=== PATIENT | female | born 1990 | race Caucasian/White ===

== ENCOUNTER → 2024-12-10 16:54 | Outpatient (CLI) | payer OTHER, SELFPAY ==
--- NOTE | 2024-12-10 16:57 | DI.MRI.S_ITS ---
PROCEDURE: MR WRIST RT WO/W CON INDICATIONS: GANGLION CYST RT WRIST TECHNIQUE: Noncontrast coronal proton density fast spin echo and T2 fast spin echo with fat saturation; coronal 3-D gradient echo, axial T1 spin echo and T2 fast spin echo with fat saturation, axial T1 spin echo with fat saturation, sagittal T1 spin echo through the wrist. Post-contrast axial, coronal, and sagittal T1 spin echo with fat saturation through the wrist. COMPARISON: None. FINDINGS: Image quality: Excellent. Bones and cartilage: No suspicious osseous enhancement. The carpal bones are normally aligned. No bone marrow contusions or fractures. No evidence for avascular necrosis. Overlying cartilage surfaces appear normal. Carpal ligaments: The scapholunate and lunotriquetral ligaments appear intact. On sagittal images, the pisohamate ligament appears intact. Triangular fibrocartilage complex: The triangular fibrocartilage appears intact. Tendons and soft tissues: Focal ovoid lesion is seen in the subcutaneous tissues at the volar radial aspect of the wrist measuring 7 x 4 x 6 mm (8/13 and 4/2). No definite cystic connection to the adjacent radiocarpal joint. The lesion is centrally hypointense on fluid sensitive sequences. There is peripheral postcontrast enhancement. A small ganglion cyst is seen at the volar radial aspect of the radiocarpal joint measuring 6 x 3 x 2 mm. The carpal tunnel structures appear normal, including the median nerve. The ulnar nerve appears normal within Guyon's canal. Mild tendinosis of the extensor carpi ulnaris tendon with superimposed mild tenosynovitis. Mild abductor pollicis longus and extensor pollicis brevis tendinosis. The remaining extensor tendon compartments demonstrate normal morphology, without pathologic tendon sheath fluid. IMPRESSION: 1. Ovoid subcutaneous peripherally enhancing and centrally [id number] lesion measuring 7 mm without definite connection to the adjacent joint space. The appearance is not definitive for ganglion cyst and differential considerations would also include peripheral nerve sheath tumors or less likely a focal venous malformation. 2. Mild extensor carpi ulnaris tendinosis and tenosynovitis. 3. Mild abductor pollicis longus and extensor pollicis brevis tendinosis. Approved by: Sergio Awad M.D. on 12/11/2024 at 8:35
== END ==
LOC: MRI 16:57
PROVIDERS: Referring Provider Student in an Organized Health Care Education/Training Program; Visit Provider Student in an Organized Health Care Education/Training Program
DX: M67.431 Ganglion, right wrist (principal); M25.831 Other specified joint disorders, right wrist; M65.931 Unspecified synovitis and tenosynovitis, right forearm
CPT/HCPCS: 73223; A9579